=== PATIENT | female | born 1945 | race Caucasian/White ===

== ENCOUNTER → 2017-01-24 | Outpatient (CLI) | payer MEDICARE, BC ==
[~2017-01-24] MED LIST: ASPIRIN PO; CALTRATE PLUS T1 TAB PO; CENTRUM COMPLE1 EACH PO; FISH OIL 1,0001 CAP PO; FISH OIL 1,001000 M1 PO; FLEXERIL PO; LEVOTHYROXINE50 MCG PO; METAMUCIL0.52 G PO; PRILOSEC PO; PROBIOTIC1 EAC1 PO; PROTONIX PO; STOOL SOFTENER PO; TEGRETOL PO; VICODIN PO; VITAMIN D1000 UNI1 PO; VITAMIN E400 UNI4 PO
--- NOTE | ~2017-01-24 | US24 ---
[facility] A Service of [facility] RADIOLOGY TEXT RESULTS PATIENT: TORRIE FATIMA LOCATION: [facility] : 49 UNIT #: [id number] AGE: [address]: Gordo Clements MD SEX: F ORDER DR: [id number] [facility] [address] [facility] [address] [place], [place] [address] [id number] O MR#: [id number] Acc #: [id number] NAME: TORRIE FATIMA : 1945 SEX: F STUDY DATE/TIME: 01/24/2017 8:13 UNIT: [facility] ROOM: STUDY DESCRIPTION: US Breast Unilateral Attending Physician: Gordo Clements M.D. Referring Physician: Gordo Clements M.D. Ordering Physician: Gordo Clements M.D. Primary Care Physician: Ned Sanchez M.D. MEDICAL IMAGING REPORT This report is preliminary unless electronic signature is present EXAM Right breast ultrasound. 01/24/17 INDICATIONS New rounded density in the right breast seen on recent screening mammogram. Patient presents for further evaluation. FINDINGS Sonographic evaluation is performed of the upper/outer right breast in multiple planes. Ultrasound demonstrates a simple cyst at the 11 o'clock position measuring 1.5 cm in greatest dimension. This corresponds to the mammographic abnormality. There are no suspicious ultrasound findings. These results were discussed with the patient at the time of her examination today. IMPRESSION Mammographic abnormality on recent screening corresponds to a simple cyst at the 11 o'clock position of the right breast. Routine yearly mammographic screening recommended. BIRADS: 2 Benign finding. Dictated by... Shine Edwards Jr., M.D. THIS IS AN ELECTRONICALLY VERIFIED REPORT Shine Edwards Jr., M.D. at 01/24/2017 11:13 AM PATRICIA/katie TD: 01/24/2017 09:10 JOB #: [id number] MEDICAL IMAGING REPORT [facility] A Service of [facility] RADIOLOGY TEXT RESULTS PATIENT: TORRIE FATIMA LOCATION: [facility] #: [id number] : 49 UNIT #: [id number] AGE: [address]: Gordo Clements MD SEX: F ORDER DR: COPY
== END | disposition home or self-care (01) ==
LOC: CWCC 07:53
DX: N60.01 Solitary cyst of right breast (principal)
CPT/HCPCS: 76641